=== PATIENT | male | born 2000 | race Caucasian/White ===

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

== ENCOUNTER 2018-03-02 20:20 | Emergency (ER) | payer SELFPAY ==
[~2018-03-02] VITALS: Ht 190.5 cm; Wt 131.0 kg
[~2018-03-02 20:20] MED LIST changes: +CIPROFLOXACN750 MG PO; +CORTISPORIN OTI10 ML AD; +MOTRIN800 MG PO
[2018-03-02] MEDS ORDERED: CORTISPORIN OTI10 M2 AS (20:32)
[2018-03-02 20:41] VITALS: BP 146/87
== END 2018-03-02 20:41 | disposition home or self-care (01) | DRG 156 ==
LOC: ED 20:20
DX: H60.92 Unspecified otitis externa, left ear (principal)

== ENCOUNTER 2020-02-10 | Emergency (ER) | payer SELFPAY ==
[~2020-02-10] MED LIST changes: +CORTISPORIN OTI10 M2 AS
[2020-02-10] MEDS ORDERED: KEFLEX500 M1 PO (22:40)
== END 2020-02-10 23:06 | disposition home or self-care (01) | DRG 914 ==
DX: S61.442A Puncture wound with foreign body of left hand, initial encounter (principal); W34.010A Accidental discharge of airgun, initial encounter; Y92.009 Unspecified place in unspecified non-institutional (private) residence as the place of occurrence of the external cause